=== PATIENT | female | born 1980 | race Caucasian/White ===

== ENCOUNTER → 2020-06-28 13:12 | Outpatient (CLI) | payer OTHER, SELFPAY ==
--- NOTE | 2020-06-28 | DI.RAD.S_ITS ---
PROCEDURE: XR SHOULDER RT MIN 2V INDICATIONS: Right Shoulder Pain TECHNIQUE: 3 views of the shoulder were acquired. COMPARISON: None. FINDINGS: Bones: No fractures or dislocations. No suspicious bony lesions. Visualized ribs appear intact. Soft tissues: No suspicious soft tissue calcifications. IMPRESSION: Mild AC joint osteoarthritis, no trauma found. Dictated by: Hardy Gilman M.D. on 06/28/2020 at 15:40 Approved by: Hardy Gilman M.D. on 06/28/2020 at 15:40
[2020-06-28 14:04] LABS: Add Manual Diff / Slide Review NO; Basophils Absolute Auto 0 /uL (0-100); Basophils Percent Auto 0.5 % (0-2); Eosinophils Absolute Auto 100 /uL (0-450); Eosinophils Percent Auto 0.9 % (2-4); Hematocrit 37.4 % (36-46); Hemoglobin 12.7 g/dL (12.0-16.0); Lymphocytes Absolute Auto 2000 /uL (1100-4500); Lymphocytes Percent Auto 22.6 % (25-40); Mean Corpuscular Hemoglobin 30.7 PG (26-34); Mean Corpuscular Volume 90.3 fL (80-100); Monocytes Absolute Auto 300 /uL (0-900); Neutrophils Absolute Auto 6400 /uL (1500-7000); Platelet Count 228 X10^3/uL (150-400); Red Blood Cell Count 4.14 X10^6/uL (4.0-5.2); Red Cell Distribution Width 12.6 % (11.6-14.8); White Blood Cell Count 8.8 X10^3/uL (4.5-11.0)
[2020-06-28 14:39] LABS: Alanine Aminotransferase 10 IU/L (<35); Albumin 4.1 g/dL (3.5-5.0); Albumin Globulin Ratio 1.7 (1.0-2.8); Alkaline Phosphatase 46 U/L (38-126); Aspartate Aminotransferase 23 IU/L (14-36); BUN Creatinine Ratio 17.9 (6-22); Blood Urea Nitrogen 14 mg/dL (7-17); Calcium 9.3 mg/dL (8.4-10.2); Carbon Dioxide 26 mmol/L (22-32); Chloride 103 mmol/L (98-107); Cholesterol 192 mg/dL (140-199); Estimated Glomerular Filt Rate > 60.0 mL/min (>60); Globulin 2.4 g/dL (1.7-4.1); Glucose 107 mg/dL (70-100); HDL Cholesterol 82 mg/dL (40-60); HEMOLYSIS < 15 (0-50); LDL Cholesterol Calculated 76 mg/dL (<100); Potassium 4.1 mmol/L (3.4-5.1); Sodium 136 mmol/L (137-145); Total Protein 6.5 g/dL (6.3-8.2); Triglycerides 172 mg/dL (35-150)
[2020-06-28 14:41] LABS: Bilirubin Total < 0.1 mg/dL (0.2-1.3)
== END ==
PROVIDERS: PCP Naturopath; Referring Provider Naturopath; Visit Provider Naturopath
DX: Z00.00 Encounter for general adult medical examination without abnormal findings (principal); M25.511 Pain in right shoulder; M19.011 Primary osteoarthritis, right shoulder
CPT/HCPCS: 36415; 73030; 80053; 80061; 85025

== ENCOUNTER → 2020-09-07 12:39 | Outpatient (CLI) | payer OTHER, SELFPAY ==
--- NOTE | 2020-09-07 | DI.RAD.S_ITS ---
PROCEDURE: FL ARTHROGRAM SHOULDER RT INDICATIONS: Pain in right shoulder COMPARISON: [facility], MR, MR SHOULDER RT W CON, 09/07/2020, 13:21. TECHNIQUE: The indications, alternatives, benefits, risks, and complications of the procedure were explained to the patient. Written informed consent was obtained and placed in the chart. The shoulder was examined fluoroscopically and a site for needle placement chosen for entry into the glenohumeral joint from an anterior approach. The skin was prepped and draped in a sterile fashion, and 1% lidocaine infiltrated from skin down to joint capsule. A spinal needle was inserted into the glenohumeral joint, and a small amount of iodinated contrast media injected to confirm intra-articular placement of the needle tip. This was followed by approximately 12 mL dilute solution of a gadolinium containing MR contrast agent. The needle was removed and a dressing was applied. The patient was given postprocedural instructions and sent to the MR suite for MR imaging. FINDINGS: A single fluoroscopic spot image demonstrates intra-articular location of injected iodinated contrast. IMPRESSION: Successful fluoroscopically guided administration of dilute Gadolinium solution into the shoulder joint for MR arthrogram. Dictated by: Hardy Gilman M.D. on 09/07/2020 at 14:39 Approved by: Hardy Gilman M.D. on 09/07/2020 at 14:40
--- NOTE | 2020-09-07 | DI.MRI.S_ITS ---
PROCEDURE: MR SHOULDER RT W CON INDICATIONS: Pain in right shoulder TECHNIQUE: After the administration of 12 mL of dilute intra-articular Gadolinium contrast, oblique coronal T1 and T2 spin echo with fat saturation, oblique sagittal T1 spin echo with and without fat saturation, oblique sagittal T2 fast spin echo with fat saturation, axial T1 spin echo with fat saturation through the shoulder. COMPARISON: None. FINDINGS: Exam degraded by motion artifact. Rotator cuff: Thinned appearance of the supraspinatus tendon in keeping with low-grade partial thickness articular and bursal sided tear. Infraspinatus tendon appears intact. Teres minor appears intact. Subscapularis tendon appears intact although mild tendinopathy and thickening. No definite atrophy of the rotator cuff muscles. There is mild fatty infiltration of the supraspinatus and infraspinatus. Bones and bursae: No bone marrow contusions or fractures. Moderate acromioclavicular joint degeneration. Acromion demonstrates conventional anatomy, without an os acromiale. Capsule and soft tissues: Labrum: Incidental sublabral foramen which follows the contour of the glenoid, image 10/6. Mild fraying of the superior labrum which is probably age-appropriate and not well seen due to motion artifact. Biceps: Long head of the biceps tendon intact. Rotator interval: Normal signal intensity. Coracohumeral ligament: Intact. IMPRESSION: Supraspinatus tendinopathy and low-grade partial thickness articular and bursal sided tear. Motion degraded examination. Dictated by: Jerry Barron M.D. on 09/07/2020 at 15:02 Approved by: Jerry Barron M.D. on 09/07/2020 at 15:08
== END ==
PROVIDERS: PCP Naturopath; Referring Provider Orthopaedic Surgery; Visit Provider Orthopaedic Surgery
DX: M25.511 Pain in right shoulder (principal); M75.111 Incomplete rotator cuff tear or rupture of right shoulder, not specified as traumatic; M19.011 Primary osteoarthritis, right shoulder
CPT/HCPCS: 23350; 73040; 73222; 77002